=== PATIENT | male | born 1990 | race Caucasian/White ===

== ENCOUNTER 2021-07-02 15:43 | Emergency (ER) | payer SELFPAY ==
[2021-07-02] MEDS ORDERED: Diphtheria,Pertussis(Acell),Tetanus Vaccine 0.5 ML Syringe IM ONE (17:02)
[2021-07-02] MEDS ORDERED: Lidocaine 1% 10 ML MDV INJECT ONE (17:02)
--- NOTE | 2021-07-02 17:14 | CR ---
Right hand: 4 views of the right hand were obtained. Comparison: No prior hand exam is available. Soft tissue injury is seen within the distal third finger with soft tissue swelling. Joint spaces are preserved within the right hand. No fracture, dislocation or other bony abnormality is seen. Impression: 1. Soft tissue injury within the third finger. 2. No acute bony abnormality is appreciated on right hand exam. Diagnostic code #2
--- NOTE | 2021-07-02 17:25 | EDM.PDOC ---
ED HPI GENERAL MEDICAL PROBLEM - General Chief Complaint: Laceration Stated Complaint: R MIDDLE FINGER INJURY Time Seen by Provider: 07/02/21 16:58 Source of Information: Reports: Patient, RN Notes Reviewed History Limitations: Reports: No Limitations - History of Present Illness INITIAL COMMENTS - FREE TEXT/NARRATIVE: Patient is a 30-year-old male presenting to the emergency department with complaints of laceration to the distal aspect of his right middle finger. Reports that he dropped a board while working in his finger became pinched between that and the ground surface. He is unsure when his last tetanus vaccination was. Right Hand Pain Score (Numeric/FACES): 7 - Related Data Allergies Allergy/AdvReac Type Severity Reaction Status Date / Time No Known Allergies Allergy Verified 07/02/21 16:25 Home Meds: Home Meds . [No Known Home Meds] 07/02/21 [History] Past Medical History - Past Health History Medical/Surgical History: Denies Medical/Surgical History Social & Family History - Tobacco Use Years of Tobacco use: 1 - Caffeine Use Caffeine Use: Reports: Coffee, Energy Drinks - Recreational Drug Use Recreational Drug Use: No ED ROS GENERAL - Review of Systems Review Of Systems: Comprehensive ROS is negative, except as noted in HPI. ED EXAM, SKIN/RASH Exam: See Below Exam Limited By: No Limitations General Appearance: Alert, WD/WN, No Apparent Distress Respiratory/Chest: No Respiratory Distress, Lungs Clear, Normal Breath Sounds, No Accessory Muscle Use, Chest Non-Tender Cardiovascular: Normal Peripheral Pulses, Regular Rate, Rhythm, No Edema, No Gallop, No JVD, No Murmur, No Rub Extremities: Other (1 cm laceration to the distal aspect of the right middle finger. Small area of ecchymosis beneath the fingernail.) Neurological: Alert, Oriented, CN II-XII Intact, Normal Cognition, Normal Gait, Normal Reflexes, No Motor/Sensory Deficits Psychiatric: Normal Affect, Normal Mood ED SKIN PROCEDURES - Laceration/Wound Repair Left Distal Digit - 3rd (Middle) Appearance: Subcutaneous Anesthetic Type: Local Local Anesthesia - Lidocaine (Xylocaine): 1% Plain Local Anesthetic Volume: 1cc Skin Prep: Chlorhexidine (Hibiciens), Providone-Iodine (Betadine), Saline, Sterile Drape Exploration/Debridement/Repair: Wound Explored, No Foreign Material Found Closed with: Sutures Lac/Wound length In cm: 1 Suture Size: 4-0 # of Sutures: 2 Suture Type: Nylon, Interrupted Sterile Dressing Applied: Nurse Tetanus Status Addressed: Yes Complications: No Course - Vital Signs Last Recorded V/S: Last Vital Signs Temp 98.8 F 07/02/21 16:24 Pulse 81 07/02/21 16:24 Resp 20 07/02/21 16:24 BP 184/96 H 07/02/21 16:24 Pulse Ox 96 07/02/21 16:24 - Orders/Labs/Meds Meds: Medications Discontinued Medications Generic Name Dose Route Start Last Admin Trade Name Freq PRN Reason Stop Dose Admin Diphtheria/Tetanus/Acell Pertussis 0.5 ml 07/02/21 17:02 07/02/21 17:30 Diphtheria,Pertussis(Acell),Tetanus Vaccine 0.5 Ml Syringe IM 07/02/21 17:03 0.5 ml .ONCE ONE Administration Lidocaine HCl 10 ml 07/02/21 17:02 07/02/21 17:30 Lidocaine 1% 10 Ml Mdv INJECT 07/02/21 17:03 10 ml ONETIME ONE Administration - Re-Assessments/Exams Free Text/Narrative Re-Assessment/Exam: Patient is a 30-year-old male presenting to the emergency part with complaints of laceration to the distal aspect of his right middle finger. X-ray was completed as ordered by triage nurse and there is no bony abnormalities. We will have the patient soak his finger in Betadine solution. He is unsure when his last tetanus vaccination was, therefore we will update that today. Have ordered lidocaine in preparation for suturing. 07/02/211814 X-ray of the finger shows no evidence of fracture. Wound was closed with sutures. See procedure notes for closure. Discharge instructions as documented. Departure - Departure Time of Disposition: 18:17 Disposition: Home, Self-Care 01 Condition: Good Clinical Impression: Laceration - Discharge Information *PRESCRIPTION DRUG MONITORING PROGRAM REVIEWED*: No *COPY OF PRESCRIPTION DRUG MONITORING REPORT IN PATIENT QUIANA: No Instructions: Laceration Care, Adult, [id number] Referrals: PCP,None [Primary Care Provider] - Forms: ED Department Discharge, ED Return to Work/School Form Additional Instructions: You were seen in the emergency department today for injury to your right middle finger. X-rays are completed and show no fracture. Wound was cleansed and closed with 2 sutures. These should stay in for 7 days. After that time the may be removed in the clinic by a nurse. Number to schedule a nurse visit is [phone]. Recommend cleaning twice daily with normal soap and water. Keep the wound covered if there is any chance that it could be contaminated. For signs of infection including increased redness, swelling, or purulent drainage. If this should occur, he should be evaluated either in the clinic or the emergency department for possible infection. You have been divided note for light duty at work for tomorrow. Return to ER as needed.
== END 2021-07-02 18:30 | disposition home or self-care (01) ==
LOC: JD.ED 15:43
DX: S61.212A Laceration without foreign body of right middle finger without damage to nail, initial encounter (principal); Z23 Encounter for immunization; Z87.891 Personal history of nicotine dependence; W26.8XXA Contact with other sharp object(s), not elsewhere classified, initial encounter; Y99.0 Civilian activity done for income or pay
CPT/HCPCS: 12001; 73130-26-RT; 73130-RT; 90471; 90715; 99283-25